=== PATIENT | male | born 1990 | race African-American/Black ===

== ENCOUNTER 2017-03-07 13:20 | Emergency (ER) | payer SELFPAY ==
[~2017-03-07] VITALS: Ht 175.3 cm; Wt 173.0 kg
[2017-03-07] MEDS ORDERED: METHOCARBAMOL 500MG TABLET PO ONE (14:00)
[2017-03-07] MEDS ORDERED: IBUPROFEN 600MG TABLET PO ONE (14:00)
[2017-03-07 14:15] VITALS: BP 130/80
== END 2017-03-07 14:53 | disposition home or self-care (01) ==
LOC: ER 13:45
DX: S13.4XXA Sprain of ligaments of cervical spine, initial encounter (principal); S29.012A Strain of muscle and tendon of back wall of thorax, initial encounter; V43.52XA Car driver injured in collision with other type car in traffic accident, initial encounter; Y93.89 Activity, other specified; Y92.488 Other paved roadways as the place of occurrence of the external cause
CPT/HCPCS: 99283